=== PATIENT | female | born 1950 | race Caucasian/White ===

== ENCOUNTER 2018-12-05 15:46 | Inpatient (IN) | payer BC ==
[~2018-12-05] VITALS: Ht 160 cm; Wt 40.8 kg
[2018-12-05 16:30] LABS: BASOPHILS ABSOLUTE AUTO 0.02 K/mm3 (0.00-0.23); BASOPHILS PERCENT AUTO 0 % (0-2); EOSINOPHILS PERCENT AUTO 0 % (0-6); Hematocrit 47.7 % (33.0-51.0); Hemoglobin 15.2 g/dL (11.5-16.0); IMMATURE GRAN ABSOLUTE AUTO 0.07 K/mm3 (0.00-0.10); IMMATURE GRAN PERCENT AUTO 0 % (0-1); LYMPHOCYTES ABSOLUTE AUTO 0.48 K/mm3 (0.84-5.20); LYMPHOCYTES PERCENT AUTO 3 % (21-46); MONOCYTES ABSOLUTE AUTO 0.45 K/mm3 (0.16-1.47); MONOCYTES PERCENT AUTO 3 % (4-13); Mean Corpuscular HGB 31.7 pg (26.0-34.0); Mean Corpuscular HGB Conc 31.9 g/dL (31.5-36.5); Mean Corpuscular Volume 100 fL (80-100); Mean Platelet Volume 10.6 fL (9.1-12.4); NEUTROPHILS ABSOLUTE AUTO 16.64 K/mm3 (1.96-9.15); NEUTROPHILS PERCENT AUTO 94 % (41-73); Platelet Count 267 K/mm3 (150-400); RDW Coefficient Variation 13.9 % (11.7-14.2); RDW Standard Deviation 51.6 fL (35.1-46.3); Red Blood Cell Count 4.79 M/mm3 (3.80-5.20); White Blood Cell Count 17.66 K/mm3 (4.00-11.30)
[2018-12-05 16:49] LABS: Alanine Aminotransfer (ALT/SGP 49 U/L (12-78); Albumin, Blood 3.3 g/dL (3.4-5.0); Albumin/Globulin Ratio 0.8 (0.8-1.8); Alk Phos 76 U/L (50-136); Anion Gap 2 mmol/L (6-16); Aspartate Aminotrans (AST/SGOT 29 U/L (12-37); Bilirubin, Total 0.4 mg/dL (0.1-1.0); Blood Urea Nitrogen 17 mg/dL (8-24); Bun/Creatinine Ratio 37.1 (12.0-20.0); CO2, Blood 38 mmol/L (21-32); Calcium, Blood 9.6 mg/dL (8.5-10.1); Chloride, Blood 98 mmol/L (98-108); Creatinine, Blood 0.46 mg/dL (0.40-1.00); Globulin, Blood 3.9 g/dL (2.2-4.0); Glomerular Filtration Rate >60 (60-); Glucose, Blood 101 mg/dL (70-99); Potassium, Blood 4.1 mmol/L (3.5-5.5); Sodium, Blood 138 mmol/L (136-145); Total Protein, Blood 7.2 g/dL (6.4-8.2)
[2018-12-05] MEDS ORDERED: BUDE6HFA INH (18:31)
[2018-12-05] MEDS ORDERED: SPIRIVA RESPIMAT4 GM INH (18:31)
[2018-12-05] MEDS ORDERED: Ventolin/Prove6.7 GM INH (18:33)
[2018-12-05] MEDS ORDERED: PARO10 PO (18:34)
[2018-12-05] MEDS ORDERED: [UNRECOGNIZED DRUG - CODE] INH (18:40)
[2018-12-05 19:00] LABS: Prealbumin, Blood 14.3 mg/dL (20.0-40.0); Troponin I <0.015 ng/mL (0.000-0.040)
[2018-12-05 22:08] LABS: Source, Urine Clean Catch
[2018-12-05 22:10] LABS: Appearance, Urine Clear (Clear); Bilirubin, Urine Neg (Neg); Blood, Urine Neg (Neg); Color, Urine Yellow (P-Yellow); Glucose Qualitative, Urine Neg (Neg); Ketones, Urine Neg (Neg); Leukocyte Esterase, Urine Neg (Neg); Nitrite, Urine Neg (Neg); Protein, Urine Neg (Neg); Urobilinogen, Urine NORM (Normal)
[2018-12-06 03:16] LABS: Adenovirus Not Detected (NOT DETECT); Bordetella pertussis Not Detected (NOT DETECT); Chlamydophila pneumoniae Not Detected (NOT DETECT); Coronavirus 229E Not Detected (NOT DETECT); Coronavirus HKU1 Not Detected (NOT DETECT); Coronavirus NL63 Not Detected (NOT DETECT); Coronavirus OC43 Not Detected (NOT DETECT); Human Metapneumovirus Not Detected (NOT DETECT); Human Rhinovirus/Enterovirus Not Detected (NOT DETECT); Influenza A Not Detected (NOT DETECT); Influenza A/2009-H1 Not Detected (NOT DETECT); Influenza A/H1 Not Detected (NOT DETECT); Influenza A/H3 Not Detected (NOT DETECT); Influenza B Not Detected (NOT DETECT); Mycoplasma pneumoniae Not Detected (NOT DETECT); Parainfluenza Virus 1 Not Detected (NOT DETECT); Parainfluenza Virus 2 Not Detected (NOT DETECT); Parainfluenza Virus 3 Not Detected (NOT DETECT); Parainfluenza Virus 4 Not Detected (NOT DETECT); Respiratory Syncytial Virus Not Detected (NOT DETECT)
--- NOTE | 2018-12-06 04:32 | NUR ---
SHIFT SUMMARY PT ADMITTED FOR ACUTE ON CHRONIC RESPIRATORY FAILURE WITH HYPOXIA. FULL CODE. CARDIAC DIET. ELEVATE HOB 45 DEGREES. [id number]- AT A RATE OF 81 PER LOG CUTTER. CONTINUOUS PULSE OX. ECHO TODAY. LOVENOX FOR DVT PROPHYLAXIS. PT ON 4L O2 VIA NC, NO OXYGEN PRIOR. PT IS EVERY DAY SMOKE WITH NICOTINE PATCH TO L SHOULDER, APPEARS TO BE TOLLERATING WELL. PT NOTED TO HAVE DECREASED SATS DURING AMBULATION TO AND FROM BR. PT IS STANDBY ASSIST TO BR. PLEASENT AND COOPERATIVE WITH CARE. PT HAS APPEARED TO SLEEP COMFORTABLY BETWEEN CARE WITH NO APPARENT SIGNS OF ACUTE DISTRESS SO FAR THIS SHIFT. ABLE TO MAKE NEEDS KNOWN AND CALL LIGHT IN REACH.
[2018-12-06 08:49] LABS: BASOPHILS PERCENT AUTO 0 % (0-2); EOSINOPHILS ABSOLUTE AUTO 0.02 K/mm3 (0.00-0.68); EOSINOPHILS PERCENT AUTO 0 % (0-6); Hematocrit 45.3 % (33.0-51.0); Hemoglobin 13.8 g/dL (11.5-16.0); IMMATURE GRAN ABSOLUTE AUTO 0.03 K/mm3 (0.00-0.10); IMMATURE GRAN PERCENT AUTO 0 % (0-1); LYMPHOCYTES ABSOLUTE AUTO 1.24 K/mm3 (0.84-5.20); LYMPHOCYTES PERCENT AUTO 12 % (21-46); MONOCYTES ABSOLUTE AUTO 0.85 K/mm3 (0.16-1.47); MONOCYTES PERCENT AUTO 8 % (4-13); Mean Corpuscular HGB 31.2 pg (26.0-34.0); Mean Corpuscular HGB Conc 30.5 g/dL (31.5-36.5); Mean Corpuscular Volume 102 fL (80-100); Mean Platelet Volume 10.3 fL (9.1-12.4); NEUTROPHILS ABSOLUTE AUTO 8.15 K/mm3 (1.96-9.15); NEUTROPHILS PERCENT AUTO 79 % (41-73); Platelet Count 234 K/mm3 (150-400); RDW Coefficient Variation 14.2 % (11.7-14.2); RDW Standard Deviation 53.7 fL (35.1-46.3); Red Blood Cell Count 4.43 M/mm3 (3.80-5.20); White Blood Cell Count 10.29 K/mm3 (4.00-11.30)
[2018-12-06 09:13] LABS: Anion Gap 2 mmol/L (6-16); Blood Urea Nitrogen 21 mg/dL (8-24); Bun/Creatinine Ratio 38.5 (12.0-20.0); CO2, Blood 43 mmol/L (21-32); Calcium, Blood 9.3 mg/dL (8.5-10.1); Chloride, Blood 99 mmol/L (98-108); Creatinine, Blood 0.55 mg/dL (0.40-1.00); Glomerular Filtration Rate >60 (60-); Glucose, Blood 76 mg/dL (70-99); Magnesium, Blood 2.5 mg/dL (1.6-2.4); Potassium, Blood 4.3 mmol/L (3.5-5.5); Sodium, Blood 144 mmol/L (136-145); Troponin I <0.015 ng/mL (0.000-0.040)
--- NOTE | 2018-12-06 10:59 | NUR ---
ECHOCARDIOGRAM COMPLETED
--- NOTE | 2018-12-06 16:27 | NUR ---
SHIFT SUMMARY PT UP TO BATHROOM INDEPENDENTLY. FAMILY AT SIDE OF BED THROUGH DAY. DENIES PAIN OR NAUSEA. FREQUENTLY SEEN DOING PURSE LIP BREATHING. SON REPORTS THE ONLY TIME AT HOME SHE TAKES A NORMAL OR DEEP BREATH IS WHEN SHE IS SMOKING. GAVE HER AN INCENTIVE SPIROMETER AND INSTRUCTED ON USE WELL LEFT A MESSAGE WITH [facility] FOR POSSIBLE EDUCATION FOR BREATHING TECHNIQUES. CONTINUOUS OXIMETRY IN PLACE. DOES ALARM WHEN FINGERS COLD AND AFTER EXERTION
--- NOTE | 2018-12-07 04:13 | NUR ---
SHIFT SUMMARY: PT IS ALERT AND ORIENTED. PT IS CALM AND COOPERATIVE WITH CARE. PT CALLS APPROPRIATELY. PT IS INDPENDENT IN THE ROOM. PT REPORTS SOB UPON EXERTION, O2 @ 3 L VIA NC. PT SLEPT MUCH OF THE NIGHT WHEN NOT DISTURBED. PT DENIES PAIN, NAUSEA, AND VOMITING. POSSIBLE DC TODAY. NO ACUTE CHANGES OR COMPLICATIONS THIS SHIFT. BED IN LOW POSITION, CALL LIGHT WITHIN REACH. WILL REPORT TO DAY NURSE.
[2018-12-07 05:12] LABS: Hematocrit 43.7 % (33.0-51.0); Hemoglobin 13.2 g/dL (11.5-16.0); Mean Corpuscular HGB 30.8 pg (26.0-34.0); Mean Corpuscular HGB Conc 30.2 g/dL (31.5-36.5); Mean Corpuscular Volume 102 fL (80-100); Mean Platelet Volume 10.5 fL (9.1-12.4); Platelet Count 233 K/mm3 (150-400); RDW Standard Deviation 52.9 fL (35.1-46.3); Red Blood Cell Count 4.28 M/mm3 (3.80-5.20); White Blood Cell Count 11.12 K/mm3 (4.00-11.30)
[2018-12-07 05:30] LABS: Blood Urea Nitrogen 31 mg/dL (8-24); Bun/Creatinine Ratio 53.4 (12.0-20.0); Chloride, Blood 96 mmol/L (98-108); Creatinine, Blood 0.58 mg/dL (0.40-1.00); Glomerular Filtration Rate >60 (60-); Glucose, Blood 106 mg/dL (70-99); Potassium, Blood 4.1 mmol/L (3.5-5.5); Sodium, Blood 141 mmol/L (136-145)
[2018-12-07 05:38] LABS: Anion Gap Unable to Calculate mmol/L (6-16); CO2, Blood >45 mmol/L (21-32)
[2018-12-07] MEDS ORDERED: ACET325 PO (11:02)
[2018-12-07] MEDS ORDERED: TIOT18 INH (11:02)
[2018-12-07] MEDS ORDERED: ASPI81CH PO (11:03)
[2018-12-07] MEDS ORDERED: BISA5EC PO (11:05)
[2018-12-07] MEDS ORDERED: FAMO40 PO (11:06)
[2018-12-07] MEDS ORDERED: FURO20 PO (11:07)
[2018-12-07] MEDS ORDERED: LISI5 PO (11:08)
[2018-12-07] MEDS ORDERED: METO25ER PO (11:10)
[2018-12-07] MEDS ORDERED: Nicoderm Cq1 EAC1 TOP (11:11)
[2018-12-07] MEDS ORDERED: ONDA4ODT MM (11:11)
[2018-12-07] MEDS ORDERED: SPIR25 PO (11:12)
[2018-12-07] MEDS ORDERED: ALBU3IS INH (11:14)
--- NOTE | 2018-12-07 13:47 | NUR ---
PT DISCHARGED PT DISCHARGED IN STABLE CONDITION WITH VSS. PT & EDUCATED ON DC INSTRUCTIONS & FOLLOW UP APPOINTMENTS. PT ASKED TO MAKE HER OWN APPOINMENT. PT EDUCATED ON LINCAIRE OF HOME O2. IV REMOVED & INTACT. PT WHEELED OUT BY AIDE & DRIVEN HOME BY . NO OTHER CHANGES IN ASSESSMENT PRIOR TO DC.
== END 2018-12-07 13:47 | disposition home or self-care (01) | DRG 189 ==
LOC: ER 15:46 → MEDS 15:47
PROVIDERS: Physician Assistant; ADMIT Family Medicine
DX: J96.21 Acute and chronic respiratory failure with hypoxia (principal); R64 Cachexia; Z68.1 Body mass index [BMI] 19.9 or less, adult; J96.22 Acute and chronic respiratory failure with hypercapnia; J43.9 Emphysema, unspecified; K59.00 Constipation, unspecified; F17.200 Nicotine dependence, unspecified, uncomplicated; Z88.0 Allergy status to penicillin
CPT/HCPCS: 0099U; 36415; 71046; 80048; 80053; 81003; 83735; 83880; 84134; 84145; 84443; 84484; 85025; 85027; 93005; 93010; 93306; 94640; 94761; 94762; 96372; 96374; 96375; 96376; 97162; 97165; 97530; 97535; 99285-25; G0378; J1650; J1940

== ENCOUNTER → 2020-01-22 | Outpatient (CLI) | payer MEDICARE, OTHER ==
[~2020-01-22] MED LIST: ACET325 PO; ALBU3IS INH; ASPI81CH PO; BISA5EC PO; BUDE6HFA INH; FAMO40 PO; FURO20 PO; LISI5 PO; METO25ER PO; Nicoderm Cq1 EAC1 TOP; ONDA4ODT MM; PARO10 PO; SPIR25 PO; SPIRIVA RESPIMAT4 GM INH; TIOT18 INH; Ventolin/Prove6.7 GM INH; [UNRECOGNIZED DRUG - CODE] INH
== END | disposition home or self-care (01) ==
LOC: LAB FUT 10-25 10:20 → OLS 13:47 → LAB SHORT 13:47
DX: R79.9 Abnormal finding of blood chemistry, unspecified (principal)
CPT/HCPCS: 36415; 83036